=== PATIENT | female | born 1945 | race Caucasian/White ===

== ENCOUNTER 2024-01-25 16:52 | Inpatient (IN) | payer OTHER ==
[2024-01-25] MEDS ORDERED: ACETAMINOPHEN INJECTION 100 ML IVPB ONE (17:56)
[2024-01-25] MEDS: ACETAMINOPHEN 1000 MG/100 ML BAG IVPB ONE (18:11)
[2024-01-25 18:26] LABS: BASO % 0.3 % (0-2.0); EOS % 0.4 % (0-4.5); HEMOGLOBIN 11.8 GM/dL (10.7-15.3); LYMPH % 11.7 % (8-40); MCHC 33.8 g/dl (32.0-36.0); MEAN CELL VOLUME 88.8 fl (80-96); MEAN PLT VOLUME 8.3 fl (7.5-11.1); MONO % 10.7 % (3.8-10.2); NEUT % 76.9 % (42.8-82.8); PLATELET COUNT 203 10^3/uL (134-434); RBC 3.94 M/mm3 (3.60-5.2); RDW 12.2 % (11.6-15.6); WHITE BLOOD COUNT 9.1 K/mm3 (4.0-10.0)
[2024-01-25 18:33] LABS: INR 0.9 (0.83-1.09); PROTHROMBIN TIME (PATIENT) 10.2 SEC (9.7-13.0)
[2024-01-25 18:36] LABS: ACTIVATED PTT 28.9 SECONDS (25.2-36.5)
[2024-01-25 18:38] LABS: POTASSIUM 4.4 mmol/L (3.5-5.1)
[2024-01-25 18:40] LABS: CALCIUM 9.6 mg/dL (8.5-10.1)
[2024-01-25 18:41] LABS: ALBUMIN 3.8 g/dl (3.4-5.0); BLOOD UREA NITROGEN 28.1 mg/dL (7-18)
[2024-01-25 18:44] LABS: CREATININE 1.4 mg/dL (0.55-1.3)
[2024-01-25 18:46] LABS: BILIRUBIN,TOTAL 0.9 mg/dL (0.2-1); TOT PROT 6.7 g/dl (6.4-8.2)
[2024-01-25] MEDS ORDERED: MORPHINE SULFATE 2 MG/ML SYRINGE ONE (19:50)
[2024-01-25] MEDS: morphine CARPU-JECT 2 MG/1 ML DISP.SYRIN IVPUSH ONE (19:57)
[2024-01-25] MEDS ORDERED: ACETAMINOPHEN 1000 MG/100 ML BAG IVPB PRN ×2 (21:41→22:53)
[2024-01-25] MEDS ORDERED: ALBUTEROL SO4 HFA INHALER IH PRN (22:12)
[2024-01-25] MEDS: LACTATED RINGERS SOLUTION 1,000 ML/1,000 ML INFUS.BAG IV SCH (22:58)
[2024-01-25] MEDS ORDERED: morphine CARPU-JECT 2 MG/1 ML DISP.SYRIN IVPUSH PRN (23:17)
[2024-01-25] MEDS: ACETAMINOPHEN 1000 MG/100 ML BAG IVPB PRN (23:21)
[2024-01-26] MEDS: ceFAZolin SODIUM 1 GM VIAL IVPB ONE
[2024-01-26] MEDS: ONDANSETRON 4 MG/2 ML VIAL IVPUSH PRN (00:56)
[2024-01-26 04:12] VITALS: BMI 14.6
[2024-01-26 08:09] LABS: HEMATOCRIT 28.7 % (32.4-45.2); HEMOGLOBIN 9.7 GM/dL (10.7-15.3); MCH 30.6 pg (25.7-33.7); MCHC 33.9 g/dl (32.0-36.0); MEAN CELL VOLUME 90.4 fl (80-96); MEAN PLT VOLUME 8.6 fl (7.5-11.1); PLATELET COUNT 158 10^3/uL (134-434); RBC 3.18 M/mm3 (3.60-5.2); RDW 12.2 % (11.6-15.6)
[2024-01-26 08:25] LABS: POTASSIUM 4.5 mmol/L (3.5-5.1)
[2024-01-26 08:30] LABS: CALCIUM 8.8 mg/dL (8.5-10.1)
[2024-01-26 08:32] LABS: BLOOD UREA NITROGEN 30.4 mg/dL (7-18)
[2024-01-26 08:33] LABS: CREATININE 1.4 mg/dL (0.55-1.3)
[2024-01-26 08:34] LABS: PHOSPHOROUS 4.4 mg/dL (2.5-4.9)
[2024-01-26 08:36] LABS: BILIRUBIN,TOTAL 0.7 mg/dL (0.2-1); TOT PROT 5.4 g/dl (6.4-8.2)
[2024-01-26] MEDS ORDERED: LIDOCAINE HCL/PF 2% SDV 5ML VIAL ONE (10:33)
[2024-01-26] MEDS ORDERED: PROPOFOL 20 ML ONE (10:33)
[2024-01-26] MEDS ORDERED: MIDAZOLAM HCL 2 MG/2 ML SINGLE DOSE VIAL ONE (10:33)
[2024-01-26] MEDS ORDERED: FENTANYL CITRATE/PF 50 MCG/ML VIAL ONE ×2 (10:33→13:01)
[2024-01-26] MEDS ORDERED: TRANEXAMIC ACID 1000 MG/10 ML VIAL ONE (11:02)
[2024-01-26] MEDS ORDERED: ceFAZolin SODIUM 1 GM VIAL ONE (11:02)
[2024-01-26] MEDS ORDERED: SUCCINYLCHOLINE CHLORIDE 200 MG/10 ML SYRINGE ONE (11:35)
[2024-01-26] MEDS: FENTANYL CITRATE/PF 50 MCG/ML VIAL IVPUSH PRN (12:08)
[2024-01-26] MEDS ORDERED: ONDANSETRON 4 MG/2 ML VIAL IVPUSH PRN (12:15)
[2024-01-26] MEDS: DOCUSATE SODIUM 100 MG CAPSULE (FP) PO SCH (15:11)
[2024-01-26] MEDS: LACTATED RINGERS SOLUTION 1,000 ML IV SCH (15:11)
[2024-01-26] MEDS: ACETAMINOPHEN 1000 MG/100 ML BAG IVPB PRN (15:14)
[2024-01-26] MEDS: CEFAZOLIN 1 GM in DEXTROSE 5%-WATER - 50 ML IVPB SCH (17:13)
[2024-01-26] MEDS: ATORVASTATIN CA 10 MG TABLET (FP) PO SCH (21:50)
[2024-01-26] MEDS ORDERED: ATORVASTATIN CA 10 MG TABLET (FP) PO SCH (22:00)
[2024-01-27] MEDS: CHOLECALCIFEROL (VIT D3) 1,000 UNIT (25 MCG) TABLET PO SCH (09:09)
[2024-01-27] MEDS: ENOXAPARIN NA (PORCINE) 30 MG/0.3 ML DISP.SYRIN SQ SCH (09:10)
[2024-01-27 09:31] LABS: BASO % 0.4 % (0-2.0); EOS % 2.1 % (0-4.5); HEMATOCRIT 29.1 % (32.4-45.2); HEMOGLOBIN 9.6 GM/dL (10.7-15.3); LYMPH % 8.4 % (8-40); MEAN CELL VOLUME 90.9 fl (80-96); MEAN PLT VOLUME 8.2 fl (7.5-11.1); MONO % 6.3 % (3.8-10.2); NEUT % 82.8 % (42.8-82.8); PLATELET COUNT 151 10^3/uL (134-434); RDW 12.1 % (11.6-15.6)
[2024-01-27 09:50] LABS: POTASSIUM 4.3 mmol/L (3.5-5.1)
[2024-01-27 09:57] LABS: CALCIUM 8.4 mg/dL (8.5-10.1)
[2024-01-27 09:58] LABS: ALBUMIN 2.7 g/dl (3.4-5.0); BLOOD UREA NITROGEN 25.6 mg/dL (7-18)
[2024-01-27 10:00] LABS: BILIRUBIN,TOTAL 0.4 mg/dL (0.2-1); TOT PROT 5.2 g/dl (6.4-8.2)
[2024-01-27] MEDS: LISINOPRIL 5 MG TABLET PO SCH (11:08)
[2024-01-27] MEDS: BACITRACIN ZINC 15 GM TUBE TOPICAL OINTMENT TP SCH (14:05)
[2024-01-27] MEDS: ONDANSETRON 4 MG/2 ML VIAL IVPUSH PRN (21:56)
[2024-01-27] MEDS: ALBUTEROL SO4 HFA INHALER IH PRN (22:20)
[2024-01-28 09:02] LABS: BASO % 0.1 % (0-2.0); EOS % 0.4 % (0-4.5); HEMATOCRIT 31.2 % (32.4-45.2); HEMOGLOBIN 10.5 GM/dL (10.7-15.3); LYMPH % 5.7 % (8-40); MCH 30.1 pg (25.7-33.7); MCHC 33.7 g/dl (32.0-36.0); MEAN CELL VOLUME 89.1 fl (80-96); MEAN PLT VOLUME 8.5 fl (7.5-11.1); MONO % 6.4 % (3.8-10.2); NEUT % 87.4 % (42.8-82.8); PLATELET COUNT 186 10^3/uL (134-434); RDW 12.1 % (11.6-15.6); WHITE BLOOD COUNT 12.1 K/mm3 (4.0-10.0)
[2024-01-28 09:10] LABS: POTASSIUM 4.3 mmol/L (3.5-5.1)
[2024-01-28 09:22] LABS: CREATININE 0.9 mg/dL (0.55-1.3)
[2024-01-28 09:23] LABS: CALCIUM 8.9 mg/dL (8.5-10.1)
[2024-01-28] MEDS: MULTIVITAMINS (DAILY MVI) TABLET (FP) PO SCH (10:05)
[2024-01-28] MEDS: ASCORBIC ACID 250 MG TABLET (FP) PO SCH (10:05)
[2024-01-28] MEDS ORDERED: ACETAMINOPHEN 325 MG TABLET (FP) PO PRN (11:03)
[2024-01-28] MEDS: ONDANSETRON 4 MG/2 ML VIAL IVPUSH PRN (11:48)
[2024-01-28 13:33] LABS: EPI CELLS 29 /uL (0-25.1); HYALINE CASTS 0 /uL (0-3.1); URINE APPEARANCE CLEAR; URINE BACTERIA 91 /uL (0-1359); URINE BILIRUBIN NEGATIVE (NEGATIVE); URINE COLOR YELLOW; URINE GLUCOSE (UA) NEGATIVE (NEGATIVE); URINE KETONE TRACE (NEGATIVE); URINE LEUK ESTERASE TRACE (NEGATIVE); URINE NITRITE NEGATIVE (NEGATIVE); URINE PROTEIN TRACE (NEGATIVE); URINE RBC 19 /uL (0-23.9); URINE UROBILINOGEN 0.2 mg/dL (0.2-1.0); URINE WBC 28 /uL (0-25.8)
[2024-01-28] MEDS: traMADol HCL 50 MG TABLET PO PRN (14:02)
[2024-01-29 09:00] LABS: BASO % 0.2 % (0-2.0); EOS % 2.2 % (0-4.5); HEMATOCRIT 25.6 % (32.4-45.2); HEMOGLOBIN 8.8 GM/dL (10.7-15.3); LYMPH % 9.2 % (8-40); MCH 30.6 pg (25.7-33.7); MCHC 34.3 g/dl (32.0-36.0); MEAN CELL VOLUME 89.2 fl (80-96); MEAN PLT VOLUME 8.3 fl (7.5-11.1); MONO % 8.9 % (3.8-10.2); NEUT % 79.5 % (42.8-82.8); PLATELET COUNT 176 10^3/uL (134-434); RBC 2.87 M/mm3 (3.60-5.2); WHITE BLOOD COUNT 9.4 K/mm3 (4.0-10.0)
[2024-01-29 09:24] LABS: POTASSIUM 4.2 mmol/L (3.5-5.1)
[2024-01-29 09:33] LABS: BLOOD UREA NITROGEN 23.7 mg/dL (7-18)
[2024-01-29 09:35] LABS: CALCIUM 8.7 mg/dL (8.5-10.1)
[2024-01-29 09:36] LABS: CREATININE 1.1 mg/dL (0.55-1.3)
[2024-01-29] MEDS: ACETAMINOPHEN 325 MG TABLET (FP) PO SCH (12:52)
[2024-01-29] MEDS: FLUTICASONE PROP 0.05% 16 GM NASAL SPRAY NS SCH (14:37)
[2024-01-29] MEDS: OXYMETAZOLINE 0.05% NASAL SOLUTION 15 ML BOTTLE NS ONE (14:37)
[2024-01-29] MEDS: OXYMETAZOLINE 0.05% NASAL SOLUTION 15 ML BOTTLE NS PRN (16:22)
[2024-01-29] MEDS: BENZOCAINE/MENTH/CETYLPYRD CL 1 EACH LOZENGE MM PRN (16:25)
[2024-01-29] MEDS: traMADol HCL 50 MG TABLET PO PRN (21:21)
[2024-01-30] MEDS: COLLAGENASE CLOSTRIDIUM HIST. 30 GRAMS TUBE TP SCH (18:17)
[2024-01-31] MEDS ORDERED: ENOXAPARIN NA (PORCINE) 30 MG/0.3 ML DISP.SYRIN SQ SCH (10:00)
[2024-01-31] MEDS: DOXYCYCLINE HYCLATE 100 MG CAPSULE PO SCH (17:31)
[2024-01-31 19:18] LABS: HEMATOCRIT 24.2 % (32.4-45.2); HEMOGLOBIN 8.2 GM/dL (10.7-15.3); MCHC 33.9 g/dl (32.0-36.0); MEAN CELL VOLUME 88.4 fl (80-96); MEAN PLT VOLUME 7.5 fl (7.5-11.1); PLATELET COUNT 241 10^3/uL (134-434); RBC 2.74 M/mm3 (3.60-5.2); RDW 12.1 % (11.6-15.6); WHITE BLOOD COUNT 6.8 K/mm3 (4.0-10.0)
[2024-01-31] MEDS: guaiFENesin 600 MG TABLET.ER (FP) PO SCH (21:11)
[2024-02-01 05:13] VITALS: RESP 18
[2024-02-01] MEDS: BACITRACIN ZINC 15 GM TUBE TOPICAL OINTMENT TP SCH (09:27)
[2024-02-01 15:22] VITALS: BP 134/70; PULSE 85; TEMP 98
== END 2024-02-01 16:30 | DRG 480 ==
LOC: JER 16:52 → JERBED 19:01 → J6S 20:23
PROVIDERS: ADMIT Internal Medicine; ATTEND Internal Medicine
PROC: 0QS706Z Reposition Left Upper Femur with Intramedullary Internal Fixation Device, Open Approach (ICD-10-PCS; principal; 2024-01-26 10:30)
DX: S72.002A Fracture of unspecified part of neck of left femur, initial encounter for closed fracture (principal); E43 Unspecified severe protein-calorie malnutrition; N17.9 Acute kidney failure, unspecified; R64 Cachexia; Z68.1 Body mass index [BMI] 19.9 or less, adult; J98.11 Atelectasis; E78.5 Hyperlipidemia, unspecified; L89.102 Pressure ulcer of unspecified part of back, stage 2; D63.8 Anemia in other chronic diseases classified elsewhere; J44.9 Chronic obstructive pulmonary disease, unspecified; I10 Essential (primary) hypertension; F17.210 Nicotine dependence, cigarettes, uncomplicated; Y92.098 Other place in other non-institutional residence as the place of occurrence of the external cause; W01.0XXA Fall on same level from slipping, tripping and stumbling without subsequent striking against object, initial encounter; Y99.9 Unspecified external cause status
CPT/HCPCS: 36415; 71045-TC-FY; 72170-TC-FY; 72192-TC; 73552-TC-LT-FY; 73562-TC-LT-FY; 76000-TC-FY; 80048; 80053; 81003; 82728; 83540; 83550; 83735; 84100; 85025; 85027; 85610; 85730; 86850; 86900; 86901; 87635; 93005; 93010; 94010; 94760; 97116-GP; 97162-GP; 99285-25; C1713; J0131